=== PATIENT | male | born 1960 | race Caucasian/White ===

== ENCOUNTER → 2016-07-05 | Outpatient (CLI) | payer MEDICARE, BC ==
[~2016-07-05] MED LIST: ADVAIR 500-501 EACH; AMBIEN; AMBIEN PO; ASPIRIN PO; ASPIRIN81 MG; B-100 COMPLEX100 MG PO; BACTROBAN22 GM TP; BUMEX1 MG; CARAFATE PO; CARDIZEM CD PO; CELLCEPT PO; CELLCEPT500 MG; COREG; CYCLOSPORINE; DEMADEX; DIFICID200 MG; FLOMAX0.4 MG PO; FLORASTOR250 M1; IRON1 TAB; JUVEN1 PKT; K-DUR20 ME1; LANOXIN125 MCG; LASIX PO; LEXAPRO; MYFORTIC180 MG; NEORAL PO; NEORAL100 MG/ML PO; NEURONTIN PO; NEXIUM; NEXIUM PO; NORVASC PO; PARICALCITOL1 MCG; PATIENT'S PHARMACY; PRADAXA150 MG; PREDNISONE; PREDNISONE PO; PREDNISONE1 MG; PULMICORT0.5 MG/2 M; QUESTRAN PACK4 G/PK1; RAPAMUNE1 MG; SYNTHROID25 MCG; TEGRETOL PO; TEGRETOL XR; TYLOX 5/500 CAP1 CAP PO; VITAMIN D-32000 UNI1; VITAMIN D400 UNI2; XARELTO10 MG; ZOFRAN; ZYLOPRIM; [UNRECOGNIZED DRUG - OTHER]; [UNRECOGNIZED DRUG - OTHER] PO
[2016-07-05 09:04] LABS: HEMATOCRIT 41.5 % (38.0-50.0); HEMOGLOBIN 13.5 gm/dL (13.0-16.0); MEAN CELL VOLUME 90.7 FL (83-96); MEAN CORPUSCULAR HEMOGLOBIN 29.5 PG (28-34); MEAN CORPUSCULAR HGB CONC 32.5 g/dL (30-36); MEAN PLATELET VOLUME 7.9 FL (6.5-11.5); RED BLOOD COUNT 4.57 X10e (3.90-5.60); WHITE BLOOD COUNT 5.9 X10e3 (4.0-10.5)
[2016-07-05 09:26] LABS: ALBUMIN SERUM 3.2 g/dL (3.5-5.0); BILIRUBIN,TOTAL 0.5 mg/dL (0.2-2.0); BUN/CREATININE RATIO 16.36; CREATININE SERUM 2.2 mg/dL (0.6-1.4); DIGOXIN (LANOXIN) 0.5 ng/ml (1.0-2.0); GLOM FILT RATE Estimated 32.1 mL/min (>60); PHOSPHOROUS 2.9 mg/dL (2.5-4.6); POTASSIUM 3.8 mmol/L (3.5-5.1); PROTEIN TOTAL SERUM 6.4 g/dL (6.0-8.3); URIC ACID 8.3 mg/dL (2.6-7.2)
[2016-07-09 15:10] LABS: CALCIUM (PTHINTACT) 8.9 mg/dL (8.6-10.3)
== END | disposition home or self-care (01) ==
LOC: SLAB 07:53
PROVIDERS: Internal Medicine Nephrology
DX: N25.81 Secondary hyperparathyroidism of renal origin (principal); N18.3 Chronic kidney disease, stage 3 (moderate); D63.1 Anemia in chronic kidney disease; Z94.0 Kidney transplant status
CPT/HCPCS: 36415; 80053; 80061; 80162; 80195; 82306; 82310; 83970; 84100; 84550; 85027; 87086

== ENCOUNTER → 2016-10-03 | Outpatient (CLI) | payer MEDICARE, BC ==
[2016-10-03 08:14] LABS: HEMATOCRIT 38.8 % (38.0-50.0); HEMOGLOBIN 12.7 gm/dL (13.0-16.0); MEAN CORPUSCULAR HEMOGLOBIN 29.4 PG (28-34); MEAN CORPUSCULAR HGB CONC 32.7 g/dL (30-36); MEAN PLATELET VOLUME 7.2 FL (6.5-11.5); RED BLOOD COUNT 4.31 X10e (3.90-5.60); RED CELL DISTRIBUTION WIDTH 14.2 % (11.0-15.5)
[2016-10-03 09:17] LABS: BILIRUBIN,TOTAL 0.4 mg/dL (0.2-2.0); BUN/CREATININE RATIO 15.5; CALCIUM SERUM 8.9 mg/dL (8.4-10.2); DIGOXIN (LANOXIN) 0.9 ng/ml (1.0-2.0); PHOSPHOROUS 2.8 mg/dL (2.5-4.6); POTASSIUM 3.8 mmol/L (3.5-5.1); PROTEIN TOTAL SERUM 6.5 g/dL (6.0-8.3); URIC ACID 7.7 mg/dL (2.6-7.2)
== END | disposition home or self-care (01) ==
LOC: SRAD 10-02 14:33 → SLAB 07:57
PROVIDERS: Internal Medicine Nephrology
DX: N18.3 Chronic kidney disease, stage 3 (moderate) (principal); D63.1 Anemia in chronic kidney disease; N25.81 Secondary hyperparathyroidism of renal origin
CPT/HCPCS: 36415; 80053; 80061; 80162; 82306; 82310; 83970; 84100; 84550; 85027; 87086